=== PATIENT | female | born 1965 | race Caucasian/White ===

== ENCOUNTER → 2017-02-14 | Outpatient (CLI) | payer OTHER | END | disposition home or self-care (01) | LOC: ROC 10:21 | PROVIDERS: ATTEND Radiology Radiation Oncology | DX: C50.912 Malignant neoplasm of unspecified site of left female breast (principal) | CPT/HCPCS: 99213; G0463 ==

== ENCOUNTER → 2018-05-03 | Outpatient (CLI) | payer OTHER ==
[~2018-05-03] MED LIST: ASPI-496 PO; ATOR40TA78 PO; CHOL100012 PO; FISH1CAP PO; LEVO88TA4 PO; MULT1TAB60 PO; VITA400C42 PO
[2018-05-03 09:16] LABS: BASOPHILS # (AUTO) 0.03 x10^3/uL (0-0.1); BASOPHILS % (AUTO) 0 % (0-1); EOSINOPHILS # (AUTO) 0.16 x10^3/uL (0-0.4); EOSINOPHILS % (AUTO) 3 % (1-7); LYMPHOCYTES # (AUTO) 1.01 x10^3/uL (1-3.4); LYMPHOCYTES % (AUTO) 16 % (22-44); MD NO; MEAN CORPUSCULAR HEMOGLOBIN 30.6 pg (27.0-34.8); MEAN CORPUSCULAR HGB CONC 33.2 g/dL (32.4-35.8); MEAN CORPUSCULAR VOLUME 92.3 fL (80-100); MEAN PLATELET VOLUME 8.4 fL (7.4-10.4); MONOCYTES # (AUTO) 0.62 x10^3/uL (0.2-0.8); MONOCYTES % (AUTO) 10 % (2-9); NEUTROPHILS # (AUTO) 4.63 x10^3/uL (1.8-6.8); NEUTROPHILS % (AUTO) 72 % (42-75); PLATELET COUNT 311 x10^3/uL (130-400); RED BLOOD COUNT 4.08 x10^6/uL (3.82-5.3); RED CELL DISTRIBUTION WIDTH 13.8 % (9.6-15.2)
[2018-05-03 09:16] LABS: MICROSCOPIC NOT IND
[2018-05-03 09:17] LABS: CULTURE INDICATED? NO
== END | disposition home or self-care (01) ==
LOC: STAR 08:21
PROVIDERS: ATTEND Obstetrics & Gynecology Maternal & Fetal Medicine
DX: Z01.818 Encounter for other preprocedural examination (principal); N92.0 Excessive and frequent menstruation with regular cycle
CPT/HCPCS: 36415; 81003; 84703; 85025

== ENCOUNTER 2018-05-09 06:07 | Day surgery (SDC) | payer OTHER ==
[~2018-05-09] VITALS: Ht 165.1 cm; Wt 87.0 kg
[2018-05-09] MEDS ORDERED: LACTATED RINGERS 1,000 ML IV SCH (06:53)
[2018-05-09] MEDS ORDERED: ONDANSETRON ODT 8 MG PO ONE (07:00)
[2018-05-09] MEDS ORDERED: ACETAMINOPHEN 500 MG TABLET PO ONE (07:00)
[2018-05-09 07:16] LABS: HCG UR SG 1.006 (1.003-1.030)
[2018-05-09] MEDS ORDERED: MIDAZOLAM 1 MG/ML, 2ML ONE (07:39)
[2018-05-09] MEDS ORDERED: FENTANYL PF 250 MCG/5ML ONE (07:39)
[2018-05-09] MEDS ORDERED: PROPOFOL 10 MG/ML, 20ML ONE (07:40)
[2018-05-09] MEDS ORDERED: LIDOCAINE-MPF 2% ,5ML ONE (07:40)
[2018-05-09] MEDS ORDERED: PHENYLEPHRINE 10 MG/ML ONE (07:41)
[2018-05-09] MEDS ORDERED: DEXAMETHASONE 4 MG/ML, 1ML ONE ×2 (07:42)
[2018-05-09] MEDS ORDERED: BUPIVACAINE 0.25% ONE (07:53)
[2018-05-09] MEDS ORDERED: SILVER NITRATE STICK TP ONE (07:58)
[2018-05-09] MEDS ORDERED: EPINEPHRINE 1 MG/ML, 1ML ONE (08:30)
[2018-05-09] MEDS ORDERED: KETOROLAC 30 MG/1 ML ONE (08:46)
[2018-05-09] MEDS ORDERED: OXYcodone 5 MG/5 ML ORAL.SOL UDC PO PRN (09:30)
[2018-05-09] MEDS ORDERED: PROMETHAZINE 25 MG/ML, 1ML IV PRN (09:30)
[2018-05-09] MEDS ORDERED: HALOPERIDOL 5 MG/ML IV PRN (09:30)
[2018-05-09] MEDS ORDERED: hydrALAzine 20 MG/ML, 1ML IV PRN (09:30)
[2018-05-09] MEDS ORDERED: FENTANYL PF 100 MCG/2ML IV PRN (09:30)
[2018-05-09] MEDS ORDERED: MEPERIDINE/PF 25MG/0.5ML IVPush PRN (09:30)
[2018-05-09] MEDS ORDERED: HYDROmorphone 1 MG/ML, 1ML IV PRN (09:30)
[2018-05-09] MEDS ORDERED: LABETALOL 5MG/ML, 20ML IV PRN (09:30)
== END 2018-05-09 12:15 | disposition home or self-care (01) ==
LOC: OUT 06:07
PROVIDERS: ATTEND Obstetrics & Gynecology Maternal & Fetal Medicine
DX: N92.0 Excessive and frequent menstruation with regular cycle (principal); E78.00 Pure hypercholesterolemia, unspecified; E03.9 Hypothyroidism, unspecified; Z85.3 Personal history of malignant neoplasm of breast
CPT/HCPCS: 58558; 81025; J0171; J1100; J1885; J2250; J2370; J2704; J3010; J3490; J7120; Q0162

== ENCOUNTER → 2018-06-04 | Outpatient (CLI) | payer OTHER ==
[2018-06-04 14:16] LABS: BASOPHILS # (AUTO) 0.02 x10^3/uL (0-0.1); BASOPHILS % (AUTO) 0 % (0-1); EOSINOPHILS # (AUTO) 0.08 x10^3/uL (0-0.4); EOSINOPHILS % (AUTO) 1 % (1-7); LYMPHOCYTES # (AUTO) 1.09 x10^3/uL (1-3.4); LYMPHOCYTES % (AUTO) 16 % (22-44); MD NO; MEAN CORPUSCULAR HEMOGLOBIN 31.3 pg (27.0-34.8); MEAN CORPUSCULAR HGB CONC 33.5 g/dL (32.4-35.8); MEAN CORPUSCULAR VOLUME 93.4 fL (80-100); MEAN PLATELET VOLUME 8.6 fL (7.4-10.4); MONOCYTES # (AUTO) 0.75 x10^3/uL (0.2-0.8); MONOCYTES % (AUTO) 11 % (2-9); NEUTROPHILS # (AUTO) 4.77 x10^3/uL (1.8-6.8); NEUTROPHILS % (AUTO) 71 % (42-75); PLATELET COUNT 290 x10^3/uL (130-400); RED BLOOD COUNT 4.09 x10^6/uL (3.82-5.3); RED CELL DISTRIBUTION WIDTH 15.4 % (9.6-15.2)
[2018-06-04 14:22] LABS: MICROSCOPIC AUTO
[2018-06-04 14:23] LABS: CULTURE INDICATED? YES
== END | disposition home or self-care (01) ==
LOC: STAR 13:18
PROVIDERS: ATTEND Obstetrics & Gynecology Maternal & Fetal Medicine
DX: Z01.818 Encounter for other preprocedural examination (principal); N92.1 Excessive and frequent menstruation with irregular cycle
CPT/HCPCS: 36415; 81001; 84703; 85025; 87086

== ENCOUNTER 2018-06-27 05:40 | Observation (INO) | payer OTHER ==
[~2018-06-27] VITALS: Ht 165.1 cm; Wt 94.7 kg
[2018-06-27] MEDS ORDERED: LACTATED RINGERS 1,000 ML IV SCH (06:09)
[2018-06-27 06:11] VITALS: BP 144/81
[2018-06-27 07:01] LABS: HCG UR SG 1.024 (1.003-1.030)
[2018-06-27] MEDS ORDERED: BUPIVACAINE/PF-EPI 0.25% 1:200K ONE (07:03)
[2018-06-27] MEDS ORDERED: FLUORESCEIN SODIUM 500 MG/5 ML ONE (07:03)
[2018-06-27] MEDS ORDERED: NEOSPORIN OINT, 15GM ONE (07:03)
[2018-06-27] MEDS ORDERED: GABAPENTIN 300 MG CAPSULE PO STA (07:08)
[2018-06-27] MEDS ORDERED: MIDAZOLAM 1 MG/ML, 2ML ONE ×2 (07:16→08:03)
[2018-06-27] MEDS ORDERED: FENTANYL PF 250 MCG/5ML ONE (07:16)
[2018-06-27] MEDS ORDERED: SCOPOLAMINE PATCH, 1.5MG PATCH.TD72 TD ONE (07:30)
[2018-06-27] MEDS ORDERED: ACETAMINOPHEN 500 MG TABLET PO ONE (07:30)
[2018-06-27] MEDS ORDERED: GLYCOPYRROLATE 0.2MG/1ML, 5ML ONE (08:05)
[2018-06-27] MEDS ORDERED: SUCCINYLCHOLINE 20 MG/ML, 10ML ONE (08:05)
[2018-06-27] MEDS ORDERED: NEOSTIGMINE 1 MG/ML, 10ML ONE (08:05)
[2018-06-27] MEDS ORDERED: CEFAZOLIN 1,000 MG ONE (08:05)
[2018-06-27] MEDS ORDERED: ONDANSETRON 2MG/ML, 2ML ONE (08:05)
[2018-06-27] MEDS ORDERED: PROPOFOL 10 MG/ML, 20ML ONE (08:05)
[2018-06-27] MEDS ORDERED: DEXAMETHASONE 4 MG/ML, 1ML ONE (08:05)
[2018-06-27] MEDS ORDERED: ROCURONIUM 10MG/ML,5ML ONE (08:05)
[2018-06-27] MEDS ORDERED: FENTANYL PF 100 MCG/2ML IV PRN (08:30)
[2018-06-27] MEDS ORDERED: MEPERIDINE/PF 25MG/0.5ML IVPush PRN (08:30)
[2018-06-27] MEDS ORDERED: HYDROmorphone 2 MG/ML, 1ML IV PRN (08:30)
[2018-06-27] MEDS ORDERED: LABETALOL 5MG/ML, 20ML IV PRN (08:30)
[2018-06-27] MEDS ORDERED: OXYcodone 5 MG/5 ML ORAL.SOL UDC PO PRN (08:30)
[2018-06-27] MEDS ORDERED: hydrALAzine 20 MG/ML, 1ML IV PRN (08:30)
[2018-06-27] MEDS ORDERED: HALOPERIDOL 5 MG/ML IV PRN (08:30)
[2018-06-27] MEDS ORDERED: DIPHENHYDRAMINE 50 MG/ML, 1ML IVPush PRN (08:30)
[2018-06-27] MEDS ORDERED: PROCHLORPERAZINE 5 MG/ML, 2ML IV PRN (08:30)
[2018-06-27] MEDS ORDERED: FENTANYL PF 100 MCG/2ML ONE ×2 (09:28→11:17)
[2018-06-27] MEDS ORDERED: ONDANSETRON 2MG/ML, 2ML IVPush PRN (10:30)
[2018-06-27] MEDS ORDERED: OXYcodone/APAP 5/325MG TABLET PO PRN (10:30)
[2018-06-27] MEDS ORDERED: morphine SULFATE 10 MG/ML, 1ML IVPush PRN (10:30)
[2018-06-27] MEDS ORDERED: KETOROLAC 30 MG/1 ML ONE (11:16)
[2018-06-27] MEDS ORDERED: OXYcodone 5 MG/5 ML ORAL.SOL UDC ONE (11:17)
[2018-06-27] MEDS: KETOROLAC 30 MG/1 ML IVPush PRN ×2 (11:24→21:14)
[2018-06-27 14:00] VITALS: BP 87/56
[2018-06-27] MEDS: LACTATED RINGERS 1,000 ML IV SCH ×2 (14:37→18:03)
[2018-06-27] MEDS: SIMETHICONE 80 MG CHEW TAB PO SCH ×2 (18:01→21:13)
[2018-06-27 19:13] VITALS: BP 106/66
[2018-06-27] MEDS: DOCUSATE 100 MG CAPSULE PO SCH (21:14)
[2018-06-28] MEDS: LACTATED RINGERS 1,000 ML IV SCH ×2 (00:27→10:03)
[2018-06-28 00:43] VITALS: BP 107/58
[2018-06-28 04:24] VITALS: BP 100/61
[2018-06-28] MEDS: KETOROLAC 30 MG/1 ML IVPush PRN ×2 (05:00→11:17)
[2018-06-28 07:15] VITALS: BP 118/73
[2018-06-28] MEDS: SIMETHICONE 80 MG CHEW TAB PO SCH (09:20)
[2018-06-28] MEDS: DOCUSATE 100 MG CAPSULE PO SCH (09:20)
[2018-06-28] MEDS ORDERED: IBUP-1222 PO (11:08)
[2018-06-28] MEDS ORDERED: OXYC-302 PO (11:09)
[2018-06-28] MEDS ORDERED: ONDA4TAB7 PO (11:10)
== END 2018-06-28 13:40 | disposition home or self-care (01) ==
LOC: OUT 05:40 → 4NOR 12:28 → OUT 18:32 → DCLOUNGE 06-28 13:34
PROVIDERS: ADMIT Obstetrics & Gynecology Maternal & Fetal Medicine; ATTEND Obstetrics & Gynecology Maternal & Fetal Medicine
DX: N92.1 Excessive and frequent menstruation with irregular cycle (principal); E03.9 Hypothyroidism, unspecified; E78.00 Pure hypercholesterolemia, unspecified; Z85.3 Personal history of malignant neoplasm of breast; Z83.3 Family history of diabetes mellitus; Z82.49 Family history of ischemic heart disease and other diseases of the circulatory system
CPT/HCPCS: 36415; 58552; 81025; 85014; 85018; 88307; 96374; 96376; G0378; J0330; J0690; J1100; J1885; J2250; J2405; J2704; J2710; J3010; J3490; J7120

== ENCOUNTER 2018-12-27 07:03 | Outpatient (CLI) | payer OTHER ==
[~2018-12-27 07:03] MED LIST changes: +IBUP-1222 PO; +ONDA4TAB7 PO; +OXYC-302 PO
== END 2018-12-27 23:59 | disposition home or self-care (01) ==
LOC: ROC 07:03
PROVIDERS: ATTEND Radiology Radiation Oncology
DX: D05.12 Intraductal carcinoma in situ of left breast (principal)
CPT/HCPCS: 99213; G0463

== ENCOUNTER → 2019-12-18 | Outpatient (CLI) | payer OTHER ==
[~2019-12-18] MED LIST changes: +VITA-74 PO; -VITA400C42 PO
== END | disposition home or self-care (01) ==
LOC: ROC 07:31
PROVIDERS: ATTEND Radiology Radiation Oncology
DX: Z78.0 Asymptomatic menopausal state (principal)
CPT/HCPCS: 99212; G0463

== ENCOUNTER 2020-12-24 07:04 | Outpatient (CLI) | payer OTHER ==
[~2020-12-24 07:04] MED LIST changes: +MULT-449 PO; -MULT1TAB60 PO; -OXYC-302 PO; +OXYC1TAB14 PO
== END 2020-12-24 23:59 | disposition home or self-care (01) ==
LOC: ROC 07:04
PROVIDERS: ATTEND Radiology Radiation Oncology
DX: Z08 Encounter for follow-up examination after completed treatment for malignant neoplasm (principal); D05.12 Intraductal carcinoma in situ of left breast
CPT/HCPCS: 99213; G0463